=== PATIENT | male | born 1985 | race Caucasian/White ===

== ENCOUNTER 2021-09-20 06:21 | Day surgery (SDC) | payer BC ==
--- NOTE | 2021-09-19 13:08 | RAD REPORT ---
EXAM DESCRIPTION: RAD - Chest Pa And Lat (2 Views) - 09/19/2021 1:02 pm CLINICAL HISTORY: PRE-OP COMPARISON: No comparisons FINDINGS: Lines: None. Lungs: No evidence of edema or pneumonia. Pleural: No significant pleural effusions or pneumothorax. Cardiac: The heart size is within normal limits. Bones: No acute fractures. Other: IMPRESSION: No acute cardiopulmonary disease.
[2021-09-20] MEDS ORDERED: Ringers Lactate 1,000 ML IV ONE ×2 (06:29→09:53)
[2021-09-20] MEDS ORDERED: FENTANYL CITR 100 MCG/2 ML ONE (07:00)
[2021-09-20] MEDS ORDERED: LIDOCAINE 1% MPF 2 ML AMPULE ONE (07:00)
[2021-09-20] MEDS ORDERED: MIDAZOLAM HCL 2 MG/2 ML INJ ONE (07:00)
[2021-09-20] MEDS ORDERED: propofoL 200 MG/20 ML VIAL IV ONE ×2 (07:01→08:11)
[2021-09-20] MEDS ORDERED: ROCURONIUM 50 MG/5 ML VIAL IV ONE (07:01)
[2021-09-20] MEDS ORDERED: GLYCOPYRROLATE 0.2 MG/ML SYR ONE ×2 (07:05→08:08)
[2021-09-20] MEDS: BUPIVACAINE 0.5% Inj,MDV 50 mL VIAL ONE ×3 (07:47→08:09)
[2021-09-20] MEDS: CEFAZOLIN/NS 1gm 1 GM/50 ML BAG ONE ×2 (07:50→08:05)
[2021-09-20] MEDS ORDERED: ONDANSETRON 4 MG/2 ML VIAL ONE (08:23)
[2021-09-20] MEDS ORDERED: KETOROLAC 30 MG/ML INJ ONE (08:23)
[2021-09-20] MEDS ORDERED: dexAMETHasone 10 MG/ML VIAL ONE (08:23)
[2021-09-20] MEDS ORDERED: NEOSTIGMINE 1 MG/ML -5 ML ONE (08:39)
--- NOTE | 2021-09-20 08:51 | P.BOP ---
Preoperative diagnosis: Left inguinal hernia Postoperative diagnosis: same Primary procedure: Laparoscopic repair of tender Left inguinal hernia with mesh [place] Operator: JULIEN CARD (CQ DEVELOPER) Estimated blood loss: <10cc Specimen: none Findings: Left inguinal hernia Anesthesia: General Complications: None Transferred to: Recovery Room Condition: Good
[2021-09-20] MEDS: HYDROMORPHONE HCL 1 MG/ML INJ ONE ×2 (09:12→09:20)
[2021-09-20 09:29] VITALS: O2SAT 98
[2021-09-20] MEDS ORDERED: HYDROCODONE/APAP 10/325 TAB ONE (09:52)
[2021-09-20 11:33] VITALS: TEMP 97.3
--- NOTE | 2021-09-20 11:55 | OP ---
Date of Procedure: 09/20/2021 Surgeon: Yamil Mckeon MD Cardiovascular Surgeon: Jess Costa. Diagnoses: Left inguinal pain and hernia. Also, a small left varicocele. Postoperative Diagnoses: Left inguinal pain and hernia. Also, a small left varicocele. Procedure: Laparoscopic repair of left inguinal hernia with mesh. Estimated Blood Loss: Less than 10 cc. Anesthesia: General plus local. Indications: This is a case of a male, who came to us with left inguinal pain. He was advised to se e his urologist for varicocele, it is small, but he also has a lymph left inguinal hernia. So, from the surgical standpoint, we offered a laparoscopic possible open repair of left inguinal hernia with mesh with benefits, alternatives, and risks including, but not limited to infection, bleeding, damage to adjacent structures, anesthesia complication, recurrence, [place], even . He also understands th is may not relieve any symptoms. He might need more than one surgical intervention. He signed a con sent. He also explained the use of mesh in this case. Pros and cons of mesh use were discussed, and after discussing pros and cons, he did consent for the use of mesh. Procedure In Detail: The patient was brought to the operating room and placed supine position. Anes thesia was done without complication. Abdominal area was prepped and draped in sterile fashion. A t brandon-out was called. Abdomen and the inguinal area were prepped and draped in a sterile fashion. The patient was placed in Trendelenburg position. The skin incision was made on the infraumbilical kel[place] on. Incision was carried down until we find the anterior rectus sheath that was opened on the left s mai. The muscle was retracted laterally to expose the posterior rectus sheath. The extraperitoneal space was developed with the help of blunt dissection, also Spacemaker balloon tipped trocar was plac ed in that area, directed toward the pubic symphysis. The scope was placed on that area and the ball oon was inflated under direct visualization to create the extraperitoneal space. The balloon was def lated, removed under direct vision, and the area was insufflated. A 5 mm trocar was placed in the ar ea just above the pubic symphysis and another one [facility] between the first and second one. The prep eritoneal space was further developed by exposing the inferior epigastric vessels and keeping them an terior. Surya ligament was dissected laterally to the junction with the iliac veins. The dissectio n continued inferiorly to the iliopubic tract avoiding damage to the femoral branch of the genitofemo ral nerve and lateral femoral cutaneous nerve. The cord structures were skeletonized. The hernia sa c was identified and retracted into the peritoneal cavity. At that moment, I proceeded then to measu re the area and I believe a medium mesh will fit that area perfectly, so we opened a 3D mesh to left side, aligned to cover direct and indirect spaces. The mesh was secured in place lateral and superio r to the iliopubic tract and inferior and medial to the Surya ligament with the help of a SorbaFix f ixation device. The area was irrigated. No bleeding. At that moment, I proceeded to stop the insuf flation allowing the air to escape. The trocars were removed, and then after that moment, I proceede d to close the anterior rectus sheath with #1 Vicryl, irrigated the subcutaneous tissue, closed that with 3-0 chromic, and skin in a subcuticular fashion with 3-0 chromic and Steri-Strips on top. At th e end of the case, the testicles were in the scrotum. The patient tolerated the procedure well. The patient was sent to Recovery in stable condition. PATIENCE/HERMELINDA Voice ID: [id number] Report ID: [id number]
--- NOTE | 2021-09-20 11:58 | OP ---
Date of Procedure: 09/20/2021 Surgeon: Yamil Mckeon MD Diagnosis: Tender left inguinal hernia Procedure: Laparoscopic repair of tender left inguinal hernia with mesh. Disposition: Home. Activity: As tolerated. No heavy lifting. Plan: Follow up in my office in 1 week. Call for appointment [phone]. Keep area dry for 48 hours, then may shower. Keep Steri-Strips intact. Medications: Vicodin q.4 hours p.r.n. pain, Bactrim DS p.o. b.i.d. PATIENCE/HERMELINDA Voice ID: [id number] Report ID: [id number]
[2021-09-20 13:46] VITALS: BP 131/60
== END 2021-09-20 13:04 | disposition home or self-care (01) ==
LOC: OR 06:21
PROVIDERS: ATTEND Surgery
PROC: 0YU64JZ Supplement Left Inguinal Region with Synthetic Substitute, Percutaneous Endoscopic Approach (ICD-10-PCS; principal; 2021-09-20 07:30)
DX: K40.90 Unilateral inguinal hernia, without obstruction or gangrene, not specified as recurrent (principal); I86.1 Scrotal varices; Z20.822 Contact with and (suspected) exposure to COVID-19
CPT/HCPCS: 71046; 49650; U0003; J2704 ×2; J2250; J3010; J1100; J1170; J2710; J0690; J7120 ×2; J2405

== ENCOUNTER 2022-03-09 10:21 | Day surgery (SDC) | payer BC ==
[2022-03-08 14:55] LABS: Absolute Lymphocytes (CBC) 2.2 K/uL (0.7-4.9); Hematocrit 45.9 % (39.6-49.0); Lymphocytes % 26.9 % (15.3-44.8); MPV 8.4 fL (7.6-11.3); RBC Red Blood Cell Count 5.01 M/uL (4.33-5.43)
[2022-03-08 15:20] LABS: Potassium 4.8 mmol/L (3.5-5.1)
[2022-03-09] MEDS ORDERED: Ringers Lactate 1,000 ML IV ONE (10:40)
[2022-03-09] MEDS ORDERED: propofoL 200 MG/20 ML VIAL IV ONE (13:01)
[2022-03-09] MEDS ORDERED: FENTANYL CITR 100 MCG/2 ML ONE ×2 (13:01→13:34)
[2022-03-09] MEDS ORDERED: MIDAZOLAM HCL 2 MG/2 ML INJ ONE ×2 (13:01→13:10)
[2022-03-09] MEDS ORDERED: LIDOCAINE 1% MPF 5 ML VIAL ONE (13:02)
[2022-03-09] MEDS ORDERED: NEOSTIGMINE 1 MG/ML -10 ML VIAL ONE (13:02)
[2022-03-09] MEDS ORDERED: ROCURONIUM 50 MG/5 ML VIAL IV ONE ×2 (13:02→14:03)
[2022-03-09] MEDS ORDERED: CEFAZOLIN SODIUM 1 GM/VIAL ONE (13:09)
[2022-03-09] MEDS ORDERED: NS 0.9% VIAL 10 ML ONE (13:16)
[2022-03-09] MEDS ORDERED: LIDOCAINE JELLY 2%- 5 ML TUBE ONE (13:20)
[2022-03-09] MEDS ORDERED: GLYCOPYRROLATE 0.2 MG/ML SYR ONE ×2 (13:36→14:18)
[2022-03-09] MEDS ORDERED: KETOROLAC 30 MG/ML INJ ONE (14:12)
[2022-03-09] MEDS ORDERED: dexAMETHasone 10 MG/ML VIAL ONE (14:12)
[2022-03-09] MEDS ORDERED: ONDANSETRON 4 MG/2 ML VIAL ONE ×2 (14:13→14:40)
--- NOTE | 2022-03-09 14:22 | P.BOP ---
Preoperative diagnosis: Tender right inguinal hernia Postoperative diagnosis: same Primary procedure: Laparoscopic repair of Tender right inguinal hernia [employer] Offsider: Micaela Marx (DUDLEY) Estimated blood loss: <10cc Specimen: none Findings: RIH Complications: None Transferred to: Recovery Room Condition: Good
[2022-03-09] MEDS: HYDROMORPHONE HCL 1 MG/ML INJ ONE ×2 (14:37→14:47)
[2022-03-09 14:53] VITALS: O2SAT 96
[2022-03-09] MEDS ORDERED: TAMSULOSIN 0.4 MG SR CAP ONE (15:32)
[2022-03-09] MEDS ORDERED: HYDROCODONE/APAP 5/325 MG TAB ONE (15:32)
[2022-03-09 16:57] VITALS: BP 126/86
[2022-03-09 17:06] VITALS: TEMP 98.6
--- NOTE | 2022-03-15 08:09 | OP ---
Date of Procedure: 03/14/2022 Surgeon: Yamil Mckeon MD Driver'S License Examiner: DUDLEY Smith. Preoperative Diagnosis: Tender right inguinal hernia. Postoperative Diagnosis: Tender right inguinal hernia. Procedure: Laparoscopic repair of tender right inguinal hernia with mesh. Estimated Blood Loss: Less than 10 cc. Specimen: None. Findings: Right inguinal hernia. Complications: None. Indication: This is the case of a 36-year-old patient, who comes to us with a tender right inguinal hernia. The benefits, alternatives, and risks of repair with mesh fully explained laparoscopic versu s open with benefits, alternatives, and risks including, but not limited to infection, bleeding, artem ge to adjacent structures, anesthesia complication, recurrence, chronic pain, chronic numbness, [place], a nd even . He also understands this may not relieve any symptoms. He might need more than one s urgical intervention. He understood, signed a consent. The area of concern was marked by me and the patient in the holding room. Procedure In Detail: The patient was brought to the operating room, placed in supine position. Anes thesia was done without complication. Abdominal area was prepped and draped in a sterile fashion. M arcaine 0.5% was injected for local anesthetic followed by sharp incision of the skin. In the infrau mbilical region, incision was carried out and carried down until we find the anterior rectus sheath t hat was opened and the muscle retracted laterally to expose the posterior rectus sheath. The extrape ritoneal space was gently developed with the help of blunt dissection. Then, we placed a balloon tip ped Spacemaker catheter placed in that area and under direct visualization with the camera, we procee ded to insufflate the region. After that, we removed the balloon and once again not insufflated the area and with the camera, we proceeded to then use that extraperitoneal space to place a 5 cm trocar at the area just above the pubis symphysis and another one [facility] between the first and the second o ne. The preperitoneal space was further developed by exposing the inferior epigastric vessels keepin g them anterior. Surya ligament was then dissected laterally to the junction with the iliac veins. The dissection continued inferiorly to the iliopubic tract avoiding damage to the femoral branch of the genitofemoral nerve and lateral femoral cutaneous nerve. The cord structures were carefully iden tified and carefully skeletonized. The hernia sac was identified and carefully reduced back into the peritoneal cavity. A 3D mesh was placed over the working space to cover direct and indirect spaces. The mesh was secured in place with SorbaFix fixation device lateral and superior to the iliopubic t ract and inferior and medial to the Surya ligament. After making sure we have the hemostasis that w e proceeded then to deflate the area, holding the mesh in place and making sure the sac is still in t he peritoneal cavity. The anterior rectus sheath was closed with #1 Vicryl, and the skin was approxi mated. The sponge count and instrument counts were correct at the end of the case, testicles were in the scrotum. PATIENCE/HERMELINDA Voice ID: [id number] Report ID: [id number]
--- NOTE | 2022-03-15 08:15 | DS ---
Date of Discharge: 03/09/2022 Diagnosis: Tender right inguinal hernia. Procedure: Laparoscopic repair of tender right inguinal hernia with mesh. Disposition: Home. Activity: As tolerated. No heavy lifting. Discharge Instructions: Follow up in my office in 1 week. Call for appointment [phone]. Keep area dry for 48 hours, then may shower. Cold compress to the right inguinal region. PATIENCE/HERMELINDA Voice ID: [id number] Report ID: [id number]
== END 2022-03-09 16:00 | disposition home or self-care (01) ==
LOC: OR 10:21
PROVIDERS: ATTEND Surgery
PROC: 0YU54JZ Supplement Right Inguinal Region with Synthetic Substitute, Percutaneous Endoscopic Approach (ICD-10-PCS; principal; 2022-03-09 12:00)
DX: K40.90 Unilateral inguinal hernia, without obstruction or gangrene, not specified as recurrent (principal); Z20.822 Contact with and (suspected) exposure to COVID-19
CPT/HCPCS: 85025; 80048; 36415; 49650; U0003; J2704; J2710; J2250 ×2; J3010 ×2; J1100; J1170; J7120; J2405; J0690